=== PATIENT | female | born 1990 | race Caucasian/White ===

== ENCOUNTER → 2017-04-14 | Outpatient (CLI) | payer OTHER ==
[~2017-04-14] MED LIST: BACTRIM DS TABL1 TA1 PO; FLOMAX0.4 M1 PO; NO MEDICATIONS; PERCOCET5/325 PO; VICODIN 5/1 TAB 5/50 PO; VICODIN 5/500 T1 TAB PO
--- NOTE | ~2017-04-14 | CR7 ---
[facility] A Service of [facility] RADIOLOGY TEXT RESULTS PATIENT: GIANLUCA EATON DECEMBER [facility] 89 UNIT #: [id number] AGE: [address]: Dave Reed MD SEX: F ORDER DR: [id number] [facility] [address] [place], [place] [address] [id number] O MR#: [id number] Acc #: [id number] NAME: GIANLUCA EATON : 1990 SEX: F STUDY DATE/TIME: 04/14/2017 15:37 UNIT: [facility] ROOM: STUDY DESCRIPTION: CR Abdomen Single AP View Attending Physician: Dave Reed M.D. Referring Physician: Dave Reed M.D. Ordering Physician: Dave Reed M.D. Primary Care Physician: Primary Care Physician No MEDICAL IMAGING REPORT This report is preliminary unless electronic signature is present EXAM KUB HISTORY Kidney stone disease. Renal colic onset over the past 2 years. TECHNIQUE A single view of the abdomen was obtained. FINDINGS No calcifications are seen over either kidney or over the expected course of either ureter. The bowel gas pattern is normal. No bony abnormalities are seen. IMPRESSION Negative KUB. Postcholecystectomy clips noted. Dictated by... Tommie Arredondo M.D. THIS IS AN ELECTRONICALLY VERIFIED REPORT Tommie Arredondo M.D. at 04/17/2017 7:07 AM RLF/ani TD: 04/16/2017 02:19 JOB #: [id number] MEDICAL IMAGING REPORT Page 1 of 1 COPY
--- NOTE | ~2017-04-14 | CT4 ---
[facility] A Service of [facility] RADIOLOGY TEXT RESULTS PATIENT: GIANLUCA EATON DECEMBER [facility] [birth year] UNIT #: [id number] AGE: [address]: Dave Reed MD SEX: F ORDER DR: [id number] [facility] [address] [place], [place] [address] [id number] O MR#: [id number] Acc #: [id number] NAME: GIANLUCA EATON : 1990 SEX: F STUDY DATE/TIME: 04/14/2017 16:14 UNIT: [facility] ROOM: STUDY DESCRIPTION: CT Abd and Pelv Wo Cont Attending Physician: Dave Reed M.D. Referring Physician: Dave Reed M.D. Ordering Physician: Dave Reed M.D. Primary Care Physician: No Primary Care Physician MEDICAL IMAGING REPORT This report is preliminary unless electronic signature is present EXAM CT abdomen and pelvis without contrast. INDICATIONS Left back pain for 2 years, history of kidneys. TECHNIQUE CT of the abdomen and pelvis was performed without contrast using the renal stone protocol. Coronal and sagittal reformatted images were obtained. This CT exam was performed with one or more of the following radiation dose reduction techniques: automatic exposure control, adjustment of mA and/or kV according to patient size, and iterative reconstruction. COMPARISON Comparison is made with 01/31/2014. FINDINGS On image #1 in the left lung base is a small nodule measuring about 6 mm. It does contain some calcifications and likely represents a granuloma. The liver is unremarkable. Cholecystectomy. The spleen is unremarkable. There is a punctate nonobstructing stone in the mid pole of the left kidney. There are a few punctate nonobstructing stones in the lower pole of the left kidney. The right kidney is unremarkable. The adrenal glands are unremarkable. The pancreas is unremarkable. Pelvis: The colon is unremarkable. The appendix is normal. No free fluid. Bone windows are unremarkable. IMPRESSION 1. There are punctate nonobstructing stones located within the left kidney. [facility] A Service of [facility] RADIOLOGY TEXT RESULTS PATIENT: GIANLUCA EATON LOCATION: [facility] : [birth year] UNIT #: [id number] AGE: [address]: Dave Reed MD SEX: F ORDER DR: 2. Cholecystectomy. Dictated by... Aurelio Regalado M.D. THIS IS AN ELECTRONICALLY VERIFIED REPORT Aurelio Regalado M.D. at 04/16/2017 7:33 AM ARS/gz TD: 04/15/2017 13:25 JOB #: [id number] MEDICAL IMAGING REPORT Page 1 of 1 COPY
== END | disposition home or self-care (01) ==
LOC: CCAT 15:16
DX: N20.0 Calculus of kidney (principal); Z90.49 Acquired absence of other specified parts of digestive tract
CPT/HCPCS: 74000; 74176